=== PATIENT | male | born 1970 | race Caucasian/White ===

== ENCOUNTER 2017-12-25 10:52 | Inpatient (IN) | payer OTHER ==
[~2017-12-25] VITALS: Ht 165.1 cm; Wt 113.4 kg
[2017-12-25] MEDS ORDERED: AVAPRO150 MG PO (11:06)
[2018-01-02] MEDS ORDERED: GABAPENTIN800 MG PO (08:16)
[2018-01-02] MEDS ORDERED: DOCUSATE SODIU100 MG PO (08:16)
[2018-01-02] MEDS ORDERED: PERCOCET 5-3251 EACH PO (08:17)
[2018-01-02] MEDS ORDERED: CLONAZEPAM1 MG PO (08:17)
[2018-01-02] MEDS ORDERED: AMOX-CLAV 875-1 EACH PO (08:17)
== END 2018-01-02 15:26 | DRG 455 ==
LOC: EDUNIT# 12:00 → O/R 01-01 06:15 → SURH 01-01 12:00 → PED 01-01 15:17
PROVIDERS: Orthopaedic Surgery Orthopaedic Surgery of the Spine
PROC: 0SG0071 Fusion of Lumbar Vertebral Joint with Autologous Tissue Substitute, Posterior Approach, Posterior Column, Open Approach (ICD-10-PCS; 2018-01-01)
PROC: 0ST20ZZ Resection of Lumbar Vertebral Disc, Open Approach (ICD-10-PCS; 2018-01-01)
PROC: 0SG00AJ Fusion of Lumbar Vertebral Joint with Interbody Fusion Device, Posterior Approach, Anterior Column, Open Approach (ICD-10-PCS; 2018-01-01)
PROC: 07DS3ZZ Extraction of Vertebral Bone Marrow, Percutaneous Approach (ICD-10-PCS; 2018-01-01)
PROC: 0SG00A0 Fusion of Lumbar Vertebral Joint with Interbody Fusion Device, Anterior Approach, Anterior Column, Open Approach (ICD-10-PCS; principal; 2018-01-01 13:00)
DX: M48.061 Spinal stenosis, lumbar region without neurogenic claudication (principal); M47.26 Other spondylosis with radiculopathy, lumbar region; M51.16 Intervertebral disc disorders with radiculopathy, lumbar region; I10 Essential (primary) hypertension